=== PATIENT | female | born 1980 | race African-American/Black ===

== ENCOUNTER 2016-10-23 10:06 | Day surgery (SDC) | payer BC ==
--- NOTE | ~2016-10-23 | OP ---
Record Of Operation [facility] [address] [place]. [address] NAME: ABBIE DOWNEY : 76 STATUS : [facility]#: [id number] AGE: 36 ADM/REG DATE : 10/23/16 MR#: [id number] REPORT SERV DATE: 10/23/16 DICTATED BY: INOCENCIA MOORE DATE: 10/23/16 REPORT STATUS : Draft TRANSCRIBED BY: MODL DATE: 10/23/16 DATE OF PROCEDURE: 10/23/2016 SURGEON: Inocencia Moore DPM. HOME COMFORT ADVISOR: . PREOPERATIVE DIAGNOSES: 1. Left lateral ankle instability with anterior talofibular ligament tear. 2. Left superficial peroneal nerve entrapment. PROCEDURES: 1. Left lateral ankle stabilization with Brostrom-Gonzalez procedure. 2. Left superficial peroneal nerve decompression. 3. Postoperative nerve block and splintage to left lower extremity. ANESTHESIA: General. HEMOSTASIS: Left thigh tourniquet set at 275 mmHg for 56 minutes. ESTIMATED BLOOD LOSS: Minimal, less than 1 mL. MATERIALS UTILIZED: Arthrex 2.4 SutureTak x2, 3-0 Vicryl, 2-0 Vicryl, and 3-0 Prolene. INJECTABLES: 30 mL of 0.5% ropivacaine plain injected postoperatively. COMPLICATIONS: None. CONDITION: Stable. JUSTIFICATION FOR PROCEDURE: The patient is a very pleasant 36-year-old female, well known to my practice with a chief complaint of significant pain and instability to her left ankle with tingling, radiating pain down her left ankle and foot. The patient has suffered for this for several months and conservative options have been exhausted. The patient is only requesting surgical intervention at this time as she understands all the risks, benefits, alternatives, postoperative course in detail. The patient understands the postoperative course includes a period of six weeks of nonweightbearing. The patient understands as in all surgeries, there are no guarantees, none of which have been given, stated, or implied. DESCRIPTION OF PROCEDURE AND FINDINGS: The patient was wheeled into the operating room and placed on the operating room table in the supine position, at which time, anesthesia was administered by Anesthesia Service, and a well-padded tourniquet was applied about the left thigh. Next, the left lower extremity was prepped, scrubbed, and draped in the usual sterile fashion. At this time, an Esmarch bandage was utilized to exsanguinate the left lower extremity Record Of Operation [facility] [id number] [place]. [address] NAME: ABBIE DOWNEY : 76 STATUS : [facility] PAT#: [id number] AGE: 36 ADM/REG DATE : 10/23/16 MR#: [id number] REPORT SERV DATE: 10/23/16 DICTATED BY: INOCENCIA MOORE DATE: 10/23/16 REPORT STATUS : Draft TRANSCRIBED BY: NIKKI DATE: 10/23/16 followed by inflation of the tourniquet was inflated to 275 mmHg. At this time, attention was directed to the lateral left leg, approximately 11 cm proximal from the lateral malleolus where an incision was made approximately 3 cm in length parallel to the fibula and the area between fibula and tibia. Dissection was carried down through the skin. At which time, all bleeders were identified and cauterized. Blunt dissection was performed down through the subcutaneous tissue utilizing curved JAKE and finger dissection. At which point, the superficial peroneal nerve was completely identified and freed from all the constricting fibers in the anterior and lateral compartments. It should be noted that the superficial peroneal nerve was identified as herniated through the fascia and coursed superficially. The fascia was severed with curved [place] erring slightly anteriorly to avoid any iatrogenic damage to the nerve. We had adequate release of this nerve. It should be noted that the nerve was mildly discolored with a yellow tinge likely due to being entrapped for a long period of time though nerve was completely released at this point. Next, the wound was copiously irrigated with sterile saline. Subcutaneous layer was closed with 3-0 Vicryl, cutaneous layer was closed with 3-0 Prolene. At this time, attention was directed to the anterior aspect of the lateral malleolus within the area of the lateral gutter directly over the location of the anterior talofibular ligament. Care was taken to map out the course of the intermediate dorsal cutaneous nerve as well as peroneal tendon on the inferior border of the incision. An incision was made with 15 blade to the skin and subcutaneous layer taking care to identify and protect all neurovascular structures and cauterize any bleeder sites. Attention was continued with careful retraction through each layer down to the capsule of the lateral ankle. The retinaculum was identified for lateral reapproximation for the Gonzalez modification. Again, dissection was continued down to the visualized rupture of the anterior talofibular ligament. It should be noted that the peroneal tendon was identified and left uninterrupted in order to prevent any damage. Utilizing the standard technique at this time, the distal aspect of the fibula was identified and approximately 1 cm proximal to the distal fibula, first anchor was placed. It should be noted that prior to placing this anchor, the cortical bone was removed utilizing a rongeur for better adhesion and a 2.4 mm SutureTak was placed 1 cm proximal to the distal tip of the fibula. The next one was placed approximately 1 cm proximal to the site. We were able to tighten lateral capsule and anterior talofibular ligament was direct repaired. It should be noted that during this procedure while passing the sutures through the distal aspect of the capsule and ligament, the foot was held in dorsiflex and everted position. The sutures were tied down at this time leaving the sutures needles on. They was passed back proximally into the periosteum and capsule to perform a [id number] type repair. We had excellent correct of the deformity at this time. Next, the wound was copiously irrigated with sterile saline. It should be noted that the wound was copiously irrigated throughout this procedure. Next, 2-0 Vicryl was utilized for reapproximation and look forward to Gonzalez modification of the retinaculum utilizing cruciate fashion suture placement. Again, we had ideal correction of the deformity and at this time the wound was again irrigated and 3-0 Vicryl was utilized for subcutaneous reapproximation followed by 3-0 Prolene for cutaneous reapproximation in horizontal mattress fashion. Next, 30 mL of 0.5% ropivacaine plain was injected proximal along the all incision sites, specifically blocking the superficial peroneal nerves and sural nerve. Next, Xeroform was applied over all the incision sites, followed by copious gauze, Kerlix, and the left lower Record Of Operation [facility] [address] [place]. [address] NAME: ABBIE DOWNEY : 76 STATUS : [facility] PAT#: [id number] AGE: 36 ADM/REG DATE : 10/23/16 MR#: [id number] REPORT SERV DATE: 10/23/16 DICTATED BY: INOCENCIA MOORE DATE: 10/23/16 REPORT STATUS : Draft TRANSCRIBED BY: NIKKI DATE: 10/23/16 extremity was then placed in a very well-padded posterior splint assuring to prevent any pressure point utilizing copious amounts of Webril. The posterior splint was adhered to the leg and foot utilizing two 4 inch Homero bandages with light compression. The patient tolerated the procedure and anesthesia well and left the operating room with vital signs stable and neurovascular status intact to her left lower extremity. The patient will be transferred to recovery where nurses were asked to ice and elevate the patient's left lower extremity. The patient has been instructed to be completely nonweightbearing and is to keep this foot rested, ice, and elevate it. The patient has been instructed on all signs and symptoms of DVT as well as infection. The patient will begin taking aspirin b.i.d. starting tomorrow. The patient is to call myself immediately or report to the emergency room if any of these problems or signs of infection or DVT should occur prior to scheduled followup appointment. FRANK/NIKKI Inocencia Moore DPM / [id number] CC: JAIME Guo MINDI
[~2016-10-23 10:06] MED LIST: *DENIES
== END 2016-10-23 17:46 | disposition home or self-care (01) ==
LOC: SDC 10:06
PROVIDERS: Podiatrist
PROC: 01NH0ZZ Release Peroneal Nerve, Open Approach (ICD-10-PCS; principal; 2016-10-23 12:45)
DX: S93.492A Sprain of other ligament of left ankle, initial encounter (principal); M25.372 Other instability, left ankle; G57.32 Lesion of lateral popliteal nerve, left lower limb; Z90.710 Acquired absence of both cervix and uterus; Z90.49 Acquired absence of other specified parts of digestive tract
CPT/HCPCS: 73610-LT; C1713; J0690; J1170; J2250; J2370; J2405; J2795; J3010